=== PATIENT | female | born 1965 | race Caucasian/White ===

== ENCOUNTER 2019-07-11 08:26 | Outpatient (RCR) | payer BC, OTHER, SELFPAY | END 2019-07-11 23:59 | disposition home or self-care (01) | LOC: ANHAUDIO 08:26 | PROVIDERS: PCP Family Medicine; Visit Provider Family Medicine | DX: Z46.1 Encounter for fitting and adjustment of hearing aid (principal) | CPT/HCPCS: V5261 ==

== ENCOUNTER 2019-10-06 14:53 | Outpatient (CLI) | payer BC, OTHER, SELFPAY ==
--- NOTE | ~2019-10-06 | DEXA_ITS ---
Bone Density Report Name: LORELEI RESTREPO Age: 53 Sex: Female Ethnicity: White Date of : 1965 Indication: postmenopausal; prior fracture; cancer; Referring Provider: JERED BETHEA D.O. Study: Bone densitometry was performed. Exam Date: October 06, 2019 Accession number: [id number] Bone Density: Region BMD T-score Z-score Classification AP Spine (L1-L4) 1.002 -0.4 0.5 Normal Femoral Neck (Left) 0.823 -0.2 0.6 Normal Total Hip (Left) 1.084 1.2 1.7 Normal Total Hip Bilateral Avg 1.081 1.2 1.7 Normal Femoral Neck (Right) 0.849 0.0 0.9 Normal Total Hip (Right) 1.076 1.1 1.6 Normal World Health Organization criteria for BMD impression classify patients as: Normal (T-score at or above -1.0), Osteopenia (T-score between -1.0 and -2.5), or Osteoporosis (T-score at or below -2.5). 10-year Fracture Risk: FRAX not reported because: All T-scores for Spine Total, Hip Total, Femoral Neck at or above -1.0 Clinical Information Provided by Patient: Has had a low trauma fracture Has the following medical conditions: Cancer Patient maximum height was 68 Menopause Age: 53 Drinks caffeinated beverages Onset of menses at age 16 Number of children 2 Impression: The patient has normal bone mass. The patient has risk factors, including: previous fracture. Discussion: BONE DENSITY IS ABOVE THE MINIMUM DESIRABLE LEVEL AT ALL SKELETAL SITES TESTED. This patient?s bone mineral density is above the minimum desirable level (T-score -1.0 or better) at all sites measured. The patient should follow a healthful lifestyle (good nutrition with adequate calcium and vitamin D, and appropriate weight-bearing exercise). Follow-Up: Consider repeating this study in 5 years or sooner if there is some new clinical indication. Reported by: [facility] on 10/06/2019 3:34:00 PM. Reviewed, dictated and finalized at location ARandy ZENG
== END 2019-10-06 14:54 | disposition home or self-care (01) ==
PROVIDERS: PCP Family Medicine; Visit Provider Internal Medicine Medical Oncology
DX: C50.812 Malignant neoplasm of overlapping sites of left female breast (principal); Z17.0 Estrogen receptor positive status [ER+]; Z79.811 Long term (current) use of aromatase inhibitors
CPT/HCPCS: 77080

== ENCOUNTER 2019-11-10 07:00 | Outpatient (RCR) | payer BC, OTHER, SELFPAY ==
--- NOTE | 2019-10-19 10:33 | PTOPEVAL ---
PHYSICAL THERAPY EVALUATION AND PLAN OF CARE 10-19-2019 The PT evaluation was completed today and the plan of treatment is 2x/week for 4 weeks. Thank you for referring Nickie to [facility]. Please review, sign, date and return this plan of care ANSLEY. I agree with and certify that the following plan of care is medically necessary. Referring Physician Date Attending Provider: Moustapha Abraham DO *PT Outpatient Evaluation Start: 10/19/19 09:25 Document 10/19/19 09:20 KERON (Rec: 10/19/19 10:33 KERON [id number]) Outpatient Past Medical History Neurological History Hx Neurological Disorders No Significant History Cardiovascular History Hx Hypercholesterolemia Yes: DIET CONTROLLED Hx Hypertension Yes Respiratory History Hx Sleep Apnea Yes: NOT WEARING CPAP, LOSING WEIGHT HAS HELPED Gastrointestinal History Hx Gastrointestinal Disorders No Significant History Genitourinary History Hx Genitourinary Disorders No Significant History Musculoskeletal History Hx Musculoskeletal Disorders No Significant History Hematological History Hx Anemia Yes: HX ANEMIA Hx Blood Transfusions Yes: 2 UNITS DURING CHEMO Endocrine History Hx Endocrine Disorders No Significant History HEENT History Hx Other HEENT Disorders Yes: EYE MUSCLE SURG CHILD; B hearing aides Integumentary History Hx Skin Disorders No Significant History Reproductive History Hx Section Yes: X2 Hx Mastectomy Yes: BILAT MASTECTOMY Psychosocial History Hx Depression Yes: WITH TAMOXIFEN Hx Other Psychiatric Disorders Yes: INSOMNIA Pain History History of Any Previous or Ongoing No Significant History Instance of Pain Anesthesia History Hx Post-Op Nausea/Vomiting Yes Other History Hx Cancer Yes: LT BREAST CA Hx Chemotherapy Yes Hx Radiation Therapy Yes Evaluation Information Problem Diagnosis L UE lymphedema Onset Sep 22, 2019 Prior Level of Function Activity Level (Last 3 Months) Occupation general office associate- computer, phone, 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
--- NOTE | 2019-11-03 07:30 | PCPTNOTE ---
pt called and canceled due to illness;
--- NOTE | 2019-12-16 15:53 | PCPTNOTE ---
PHYSICAL THERAPY DISCHARGE 12-16-2019 Attending Provider: Moustapha Abraham DO Patient:Nica Beaver Date of :1965 Nickie has not returned for any further treatments since 11/10/2019, therefore she will be discharged at this time. She received 5 PT sessions, from October 05 to November 09. At the last session, she was doing well--had been educated on self lymph massage, lymphedema care, home exercises for shoulder and was issued information to order an ABC compression bra and swell pad. The goals were not assessed. Thank you for referring this patient to [facility]. Please review, sign, date and return this discharge summary ANSLEY. I have been updated about the patient's current status and I agree with discharge from the above service at this time. Referring Physician Date
== END 2019-12-19 11:21 | disposition home or self-care (01) ==
LOC: ANHPT 07:00
PROVIDERS: PCP Family Medicine; Visit Provider Internal Medicine Medical Oncology
DX: I89.0 Lymphedema, not elsewhere classified (principal); C50.812 Malignant neoplasm of overlapping sites of left female breast; Z17.0 Estrogen receptor positive status [ER+]
CPT/HCPCS: 97110; 97140; 97161

== ENCOUNTER 2022-02-07 10:55 | Outpatient (CLI) | payer BC, OTHER, SELFPAY ==
[2022-02-07 12:03] LABS: Hemoglobin 13.8 g/dL (12.0-15.0); Mean Corpuscular HGB Conc 32.9 g/dl (32-36); Mean Corpuscular Hemoglobin 29.3 pg (26-34); Mean Corpuscular Volume 89.2 fl (80-100); Mean Platelet Volume 11.2 fl (7.4-10.4); Platelet Count Result 248 k/mm3 (150-375); Red Blood Count 4.71 M/mm3 (4.2-5.4); Red Cell Distribution Width 13.3 % (11.5-14.5); White Blood Count 5.3 K/mm3 (4.5-10.0)
[2022-02-07 12:57] LABS: Free T4 Free Thyroxine 1.61 ng/mL (0.78-2.19)
[2022-02-07 13:10] LABS: Alanine Aminotransferase 32 U/L (6-35); Albumin Level 4.3 g/dL (3.5-5.1); Alkaline Phosphatase 96 U/L (38-126); Anion Gap 6 mmol/L (8-16); Aspartate Amino Transferase 25 U/L (14-36); Bilirubin,Total 0.7 mg/dL (0.2-1.3); Blood Urea Nitrogen 12 mg/dL (7-17); Calcium 9.3 mg/dL (8.4-10.2); Carbon Dioxide 27 mmol/L (22-30); Chloride 107 mmol/L (98-107); Cholesterol 221 mg/dL (0-200); Estimated Glomerular Filt Rate > 60; Glucose 99 mg/dL (65-110); HDL Direct 37 mg/dL; Potassium 4.3 mmol/L (3.4-5.0); Sodium 140 mmol/L (137-145); Triglycerides 199 mg/dL (<150)
[2022-02-07 13:16] LABS: LDL Cholesterol Direct 119 mg/dL
== END 2022-02-07 10:56 | disposition home or self-care (01) ==
LOC: ANHLAB 10:57
PROVIDERS: PCP Family Medicine; Visit Provider Physician Assistant
DX: D64.9 Anemia, unspecified (principal); E78.00 Pure hypercholesterolemia, unspecified; I10 Essential (primary) hypertension; R53.83 Other fatigue; Z13.220 Encounter for screening for lipoid disorders; Z13.1 Encounter for screening for diabetes mellitus
CPT/HCPCS: 36415; 80053; 80061; 84439; 84443; 85027

== ENCOUNTER 2022-06-23 14:53 | Outpatient (CLI) | payer BC, OTHER, SELFPAY ==
--- NOTE | ~2022-06-23 | DEXA_ITS ---
Bone Density Report Name: LORELEI RESTREPO Age: 56 Sex: Female Ethnicity: White Date of : 1965 Indication: postmenopausal; screening for osteoporosis; prior fracture; cancer; Referring Provider: LAKE, JERED Curran Study: Bone densitometry was performed. Exam Date: June 23, 2022 Accession number: [id number] Bone Density: Region BMD T-score Z-score Classification AP Spine(L1-L4) 0.900 -1.3 -0.3 Osteopenia Femoral Neck (Left) 0.801 -0.4 0.6 Normal Total Hip (Left) 0.963 0.2 0.8 Normal Femoral Neck (Right) 0.831 -0.2 0.9 Normal Total Hip (Right) 0.966 0.2 0.9 Normal Total Hip Mean 0.964 0.2 0.9 Normal World Health Organization criteria for BMD impression classify patients as: Normal (T-score at or above -1.0), Osteopenia (T-score between -1.0 and -2.5), or Osteoporosis (T-score at or below -2.5). 10-year Fracture Risk(1): Major Osteoporotic Fracture 8.7% Hip Fracture 0.3% Reported Risk Factors: [place] (), Neck BMD=0.801, BMI=35.5, previous fracture (1) FRAX(R) Version 3.08. Fracture probability calculated for an untreated patient. Fracture probability may be lower if the patient has received treatment. Previous Exams: Region Exam Age BMD T-score BMD Change BMD Change Date g/cm2 vs Baseline vs Previous AP Spine (L1-L4) 06/23/2022 56 0.900 -1.3 -0.102 (-10.2% -0.102 (-10.2% 10/06/2019 53 1.002 -0.4 Total Hip(Left) 06/23/2022 56 0.963 0.2 -0.121 (-11.2% -0.121 (-11.2% 10/06/2019 53 1.084 1.2 Total Hip(Right) 06/23/2022 56 0.966 0.2 -0.110 (-10.2% -0.110 (-10.2% 10/06/2019 53 1.076 1.1 *Denotes significance at 95% confidence level, LSC for AP Spine = 0.022 g/cm2, LSC for Total Hip = 0.027 g/cm2 # Denotes dissimilar scan types or analysis methods Clinical Information Provided by Patient: Has had a low trauma fracture Has the following medical conditions: Cancer Patient maximum height was 68 Menopause Age: 53 No regular weight bearing exercise Drinks caffeinated beverages Onset of menses at age 16 Number of children 2 Impression: The patient has low bone mass, based on the Total Spine T-score. The patient has an estimated ten-year risk of hip fracture of 0.3% and an estimated ten-year risk of major fracture of 8.7%, based on the WHO FRAX algorithm. The patient has risk factors, including: previous fracture. No significant bone loss was observed. Discussion: BONE
== END 2022-06-23 14:54 | disposition home or self-care (01) ==
LOC: ANHIMG 14:54
PROVIDERS: PCP Family Medicine; Visit Provider Internal Medicine Medical Oncology
DX: Z78.0 Asymptomatic menopausal state (principal); M85.88 Other specified disorders of bone density and structure, other site
CPT/HCPCS: 77080

== ENCOUNTER 2023-10-22 18:46 | Observation (INO) | payer BC, OTHER, SELFPAY ==
[2023-10-22] VITALS (11 sets, daily range): BP systolic 109–189; BP diastolic 66–149; PULSE 83–162; RESP 13–20; TEMP 36.3–36.4; O2SAT 95–100; BMI 37.0
--- NOTE | ~2023-10-22 | XR_ITS ---
EXAMINATION: XR chest 1V portable DATE: 10/22/2023 19:25 INDICATION: Chest pain. TECHNIQUE: A single frontal view of the chest was obtained. COMPARISON: Chest 2 views 12/01/2018 FINDINGS: There is no pneumonia, pleural effusion, or pneumothorax. The heart size is normal. IMPRESSION: 1. No acute cardiopulmonary disease. Reviewed, dictated and finalized at location E. E VICTIM SPECIALIST
--- NOTE | ~2023-10-22 | CT_ITS ---
EXAMINATION: CTA chest PE protocol DATE: 10/23/2023 14:50 INDICATION: Chest pain. TECHNIQUE: Computed tomography angiography (CTA) of the chest was performed with 100 mL Omnipaque-350 intravenous contrast timed to evaluate the pulmonary arteries. Coronal maximum intensity projection 3D-reconstructions were created by the technologist. Automated exposure control and iterative reconst ruction technique were employed. The dose-length product was 558.28 mGy-cm. COMPARISON: Chest single view 10/22/2023 FINDINGS: There is peripheral radiation fibrosis in anterolateral left lung. There is mild atelectasi s bilaterally. There is mosaic attenuation in the lungs, likely small airways disease. No pleural eff usion. The heart size is normal. No pericardial effusion. There is no pulmonary embolus. There is a 1 5 mm cyst in the liver. There is mild thoracic spondylosis. IMPRESSION: 1. No pulmonary embolus. 2. Mosaic attenuation in the lungs, likely small airways disease. Reviewed, dictated and finalized at location E. LOPE FOLDING MACHINE ADJUSTER
--- NOTE | 2023-10-22 18:47 | ECG_ITS ---
Measurements Intervals [place] Rate: 163 P: AL: 0 QRS: 56 QRSD: 109 T: 33 QT: 279 QTc: 460 Interpretive Statements SUPRAVENTRICULAR TACHYCARDIA NONSPECIFIC ST SEGMENT ABNORMALITY ABNORMAL ECG COMPARED TO ECG 12/01/2018 07:48:57 SVT REPLACES SINUS RHYTHM Electronically Signed On 10-23-2023 12:30:26 FIELD OPERATIONS MANAGER by Justin Hay M.D.
[2023-10-22 19:00] LABS: Basophils Absolute Auto 0.1 K/mm3 (0.0-0.1); Basophils Percent Auto 0.4 % (0.2-1.2); Eosinophils Absolute Auto 0.2 K/mm3 (0-0.3); Eosinophils Percent Auto 1.5 % (0-4.4); Hematocrit 44.1 % (37.0-47.0); Hemoglobin 14.8 g/dL (12.0-15.0); Immature Granulocyte Absolute 0.05 K/mm3 (0.00-0.031); Immature Granulocyte Percent A 0.4 % (0-0.5); Lymphocytes Absolute Auto 3.69 K/mm3 (0.9-3.2); Lymphocytes Percent Auto 26.7 % (18.3-44.2); Mean Corpuscular HGB Conc 33.6 g/dl (32-36); Mean Corpuscular Volume 86.3 fl (80-100); Mean Platelet Volume 10.7 fl (7.4-10.4); Monocytes Absolute Auto 0.8 K/mm3 (0.1-0.6); Platelet Count Result 348 k/mm3 (150-375); Red Blood Count 5.11 M/mm3 (4.2-5.4); Red Cell Distribution Width 13.1 % (11.5-14.5); White Blood Count 13.8 K/mm3 (4.5-10.0)
--- NOTE | 2023-10-22 19:01 | PC.NURSE ---
attempting Valsalva maneuver at this time
[2023-10-22] MEDS: SODIUM CHLORIDE 0.9% IV 1,000 ML 999 ML (19:02)
[2023-10-22] MEDS: ADENOSINE IV SOLN 6 MG/2 ML VIAL (19:04)
--- NOTE | 2023-10-22 19:09 | ED.GENADULT ---
HPI - General Adult General Chief complaint: Chest Pain Stated complaint: chest pain Time Seen by Provider: 10/22/23 19:08 History of Present Illness HPI narrative: 58 years old white female came to the emergency room by private car complaining of sudden onset of fast heartbeat started prior to arrival 20 minutes. Associated with chest pain. Patient denies having similar symptoms. History of bilateral mastectomy secondary to breast cancer 5 years ago, currently on hormone blockers., history of hypertension and depression. Related Data Allergies Allergy/AdvReac Type Severity Reaction Status Date / Time No Known Allergies Allergy Verified 07/07/23 09:00 Review of Systems Review of Systems: All systems reviewed & are unremarkable except as noted in HPI and below PMFSH Past Medical History Medical History (Updated 10/22/23 @ 20:46 by David Theodore MD) Breast cancer, left breast Hyperlipidemia Hypertension KENDALL (obstructive sleep apnea) Surgical History Surgical History History of left mastectomy d/t breast cancer History of right mastectomy 2019-prophylactic Family History Family History Father Hypertension Sibling Hypertension Grandparent Hypertension Other Family history of malignant neoplasm Social History Social History Smoking status: Never smoker Alcohol intake: never Substance use: never Substance use type: does not use Exam Narrative: General appearance: Well-developed, well-nourished Skin: Normal color Head: Normocephalic, nontraumatic Eyes: Clear conjunctiva ENT: Oropharynx normal, ears normal, nose normal Neck: Supple, nontender Chest and respiratory: Airway patent, no respiratory distress, no accessory muscle use Heart: Tachycardia Abdomen: Soft, nontender, no organomegaly, quiet bowel sounds Vascular: Normal peripheral pulses, normal capillary refill. Musculoskeletal: Normal range of motion, nontender back Neurologic: Alert and oriented ?3, REEL BLADE BENDER FURNACE TENDER is normal as tested, no gross motor deficit Course Vital Signs Vital signs: Vital Signs Temperature 36.3 C L 10/22/23 18:57 Pulse Rate 158 H 10/22/23 18:57 Respiratory Rate 20 10/22/23 18:57 Blood Pressure 141/109 H 10/22/23 18:57 Pulse Oximetry 98 10/22/23 18:57 Oxygen Delivery Room Air 10/22/23 18:57 Temperature 36.3 C L 10/22/23 18:57 Pulse Rate 101 H 10/22/23 20:01 Respiratory Rate 17 10/22/23 20:01 Blood Pressure 163/103 H 10/22/23 20:01 Pulse Oximetry 99 10/22/23 20:01 Oxygen Delivery Room Air 10/22/23 18:57 Medical Decision Making MDM Narrative Medical decision making narrative: PATIENT CAME TO THE ED WITH SUDDEN ONSET OF A CV T 20 MINUTES PRIOR TO ARRIVAL TO THE EMERGENCY ROOM. PATIENT COULD NOT TOLERATE MODIFIED VALSALVA MANEUVER, 6 MG OF ADENOSINE IV, CONVERTED TO NORMAL SINUS RHYTHM. BLOOD WORKUP TODAY SHOWED NO ACUTE ABNORMALITY, CHEST X-RAY SHOWED NO ACUTE ABNORMALITY, BECAUSE PATIENT HAD ASSOCIATED CHEST PAIN, ADMISSION FOR OBSERVATION TO RULE OUT THE POSSIBILITY OF CORONARY ARTERY DISEASE. DISCUSSED WITH HOSPITALIST. Vital Signs Vital Signs: Vital Signs Temperature 36.3 C L 10/22/23 18:57 Pulse Rate 158 H 10/22/23 18:57 Respiratory Rate 20 10/22/23 18:57 Blood Pressure 141/109 H 10/22/23 18:57 Pulse Oximetry 98 10/22/23 18:57 Oxygen Delivery Room Air 10/22/23 18:57 Temperature 36.3 C L 10/22/23 18:57 Pulse Rate 101 H 10/22/23 20:01 Respiratory Rate 17 10/22/23 20:01 Blood Pressure 163/103 H
[2023-10-22 19:11] LABS: Alanine Aminotransferase 34 U/L (6-35); Albumin Level 4.7 g/dL (3.5-5.1); Alkaline Phosphatase 99 U/L (38-126); Anion Gap 11 mmol/L (8-16); Aspartate Amino Transferase 32 U/L (14-36); Bilirubin,Total 0.7 mg/dL (0.2-1.3); Blood Urea Nitrogen 18 mg/dL (7-17); Calcium 10.2 mg/dL (8.4-10.2); Carbon Dioxide 23 mmol/L (22-30); Chloride 102 mmol/L (98-107); Estimated CRCL calculation 83 ml/min; Estimated Glomerular Filt Rate > 60; Glucose 152 mg/dL (65-110); Lipase 106 U/L (23-300); Potassium 4.1 mmol/L (3.4-5.0); Sodium 136 mmol/L (137-145)
--- NOTE | 2023-10-22 19:13 | ECG_ITS ---
Measurements Intervals [place] Rate: 95 P: 32 AL: 155 QRS: 34 QRSD: 103 T: 55 QT: 371 QTc: 467 Interpretive Statements SINUS RHYTHM INCOMPLETE RIGHT BUNDLE BRANCH BLOCK [90+ ms QRS DURATION, TERMINAL R IN V1/V2, 40+ ms S IN I/aVL/V4/V5/V6] NONSPECIFIC ST SEGMENT ABNORMALITY ABNORMAL ECG COMPARED TO ECG 10/22/2023 18:51:54 SVT HAS BEEN TERMINATED AND REPLACED WITH SINUS RHYTHM Electronically Signed On 10-23-2023 12:31:03 TILE SETTER SUPERVISOR by Justin Hay M.D.
[2023-10-22 19:16] LABS: INR 0.9; Partial Thromboplastin Time 28.4 SECONDS (22.3-36.8); Prothrombin Time 12.5 Seconds (11.1-14.7)
[2023-10-22 19:22] LABS: Troponin I < 0.012 ng/mL (0.000-0.034)
--- NOTE | 2023-10-22 20:51 | PM.IMHP ---
H&P: HPI History of Present Illness Date/Time: 10/22/23 20:51 Chief Complaint: palpitations Narrative: this is a 58-year-old female with past medical history significant for breast cancer status post bilateral mastectomy and radiation. Patient presents to the emergency room due to episode of palpitations while she was at [employer] store shopping for bed linen when all of a sudden she experience palpitations with lightheadedness, near-syncope. EXAMINATION: XR chest 1V portable DATE: 10/22/2023 19:25 INDICATION: Chest pain. TECHNIQUE: A single frontal view of the chest was obtained. COMPARISON: Chest 2 views 12/01/2018 FINDINGS: There is no pneumonia, pleural effusion, or pneumothorax. The heart size is normal. IMPRESSION: 1. No acute cardiopulmonary disease. Review of Systems Review of Systems: Palpitations, lightheadedness, near-syncope Constitutional: Constitutional: Denies chills, Denies fever(s) and Denies night sweats Eyes: Eyes: Denies change in vision ENT: Denies dysphagia and Denies odynophagia Cardiovascular: Cardiovascular: Reports lightheadedness, Reports palpitations and Reports dyspnea Respiratory: Respiratory: Denies chest congestion and Denies cough Gastrointestinal: Gastrointestinal: Reports abdominal pain, Denies dyspepsia, Denies heartburn, Denies diarrhea, Denies nausea and Denies vomiting Genitourinary: Genitourinary: Denies dysuria Musculoskeletal: Musculoskeletal: Denies arthralgias Integumentary/Breasts: Skin/Breast: Denies rash Neurologic: Denies focal weakness and Denies Sensory deficit (Neuro) Psychiatric: Psychiatric: Reports no additional psychiatric complaints and Reports as per HPI Endocrine: Endocrine: Denies cold intolerance, Denies flushing, Denies heat intolerance, Denies polyphagia, Denies polydipsia and Denies palpitations Hematologic/Lymphatic: Hematologic/Lymphatic: Reports no additional hematologic/lymphatic complaints and Reports as per HPI Allergic/Immunologic: Allergic/Immunologic: Reports no additional allergic/immunologic complaints and Reports as per HPI PMFSH Past Medical History Medical History (Updated 10/23/23 @ 02:04 by Jefe Putnam MD) Breast cancer, left breast Hyperlipidemia Hypertension KENDALL (obstructive sleep apnea) Surgical History Surgical History History of left mastectomy d/t breast cancer History of right mastectomy 2019-prophylactic Family History Family History Father Hypertension Sibling Hypertension Grandparent Hypertension Other Family history of malignant neoplasm Social History Social History Smoking status: Never smoker Alcohol intake: never Substance use: never Substance use type: does not use Do You Feel Safe in your Home?: Yes Lack of Transportation: No Lack of Food: Never True Current Housing: I Have Housing Concerned About Future Housing: No Difficulty Paying Gas/Electric Bills: No Difficulty Paying for Meds: No Currently Unemployed: No Education: Decline to Answer Difficulty w/ Childcare or Family Care: No Spiritual care concerns: No Meds Home Medications and Allergies Home Medications Medication Instructions Recorded Confirmed Type triamterene 37.5 1 tablet PO DAILY PRN Edema #90 11/08/19 10/22/23 Rx mg-hydrochlorothiazide 25 mg tablet tabs anastrozole 1 mg tablet (Arimidex) 1 mg PO DAILY #30 tabs 08/29/20 10/22/23 Rx metoprolol succinate 50 mg 50 mg PO DAILY #90 tabs 10/18/23 10/22/23 Rx tablet,extended release 24 hr albuterol sulfate 90 mcg/actuation 1 inh inhalation Q4H PRN shortness 10/22/23 10/22/23 Rx aerosol inhaler of breath or wheezing #8.5 grams fluticasone propionate 115 2 puff inhalation DAILY #12 grams 10/22/23 10/22/23 Rx mcg-salmeterol 21 mcg/actuation HFA inha
[2023-10-22] MEDS: METOPROLOL SUCCINATE EXT REL 12.5 MG, METOPROLOL SUCCINATE EXT REL 25 MG 37.5 MG PO (21:22)
--- NOTE | 2023-10-22 22:29 | ADMGEN ---
This patient, Nica Beaver, was admitted to IMU Room 203-01. Patient/family oriented to hospital policies and general routines including ID bracelet, bed and alarms, visiting hours, pain management, procedures, bathroom and other care routines, personal items, smoking policy, room service/diet, and visiting hours. Information on how to activate the Rapid Response Team has been discussed. Patient/Family are encouraged to report perceived risks to care and to ask questions if they do not understand what they are told or what they should do.
[2023-10-23] VITALS (11 sets, daily range): BP systolic 121–153; BP diastolic 66–86; PULSE 64–120; RESP 14–20; TEMP 36.4–36.7; O2SAT 97–99
--- NOTE | 2023-10-23 | ECHO_ITS ---
Patient Info Name: Nica Beaver Age: 58 years : 1965 Gender: Female Ht: 67 in Wt: 220 lbs BSA: 2.21 m2 HR: 74 bpm BP: 141 / 77 mmHg Heart Rhythm: Sinus Rhythm Technical Quality: Good Exam Date: 10/23/2023 11:05 AM Exam Location: Echo Lab Patient Status: Outpatient Admit Date: 10/22/2023 Staff Ordering Physician: Jefe Putnam MD Site Project Manager: Levar Scanlon RDCS Attending Provider: Jefe Putnam MD Referring Physician: Indy SALAZAR; Exam Type: CA echo doppler color flow Study Info Indications - palpatation Complete two-dimensional, color flow and Doppler transthoracic echocardiogram is performed. Summary 1. Complete two-dimensional, color flow and Doppler transthoracic echocardiogram is performed. 2. Normal 2D and doppler echocardiogram. Left Ventricle Left ventricular chamber dimension is normal. Left ventricular systolic function is normal, estimated at 60-65%. The left ventricular diastolic function is normal. Right Ventricle Right ventricular chamber dimension is normal. Left Atria Left atrial chamber dimension is normal. Right Atria Right atrial chamber dimension is normal. Aortic Valve The aortic valve is normal. Pulmonic Valve The pulmonic valve is normal. Mitral Valve The mitral valve has normal leaflets. Tricuspid Valve The tricuspid valve leaflets are normal. Pericardium/Pleural The pericardium appears normal. Aorta The aortic root size at the sinus of Valsalva is normal. Left Ventricular Outflow Tract Name Value Normal LVOT 2D LVOT Diameter 2.5 cm LVOT Doppler LVOT Peak Gradient 3 mmHg LVOT Mean Gradient 2 mmHg LVOT VTI 24 cm LVOT VTI/AV VTI Ratio 0.9 LVOT Stroke Volume 117 ml LVOT CO 6.9 l/min LVOT CI 3.1 l/min/m2 Pulmonic Valve Name Value Normal RVOT Doppler RVOT Peak Gradient 2 mmHg PV Doppler PV Peak Gradient 5 mmHg Mitral Valve Name Value Normal MV Doppler MV Decel [place] 344 cm/s2 MV PHT 87 ms MV Area (PHT) 2.5 cm2 4.0-5.0 MV Diastolic Function MV E Peak Velocity 103 cm/s MV A Peak Velocity 72 cm/s MV E/A 1.4 MV Decel Time
[2023-10-23 00:26] LABS: Troponin I < 0.012 ng/mL (0.000-0.034)
[2023-10-23 03:40] LABS: Troponin I < 0.012 ng/mL (0.000-0.034)
[2023-10-23] MEDS: FLUTICASONE/SALMETEROL 115-21 MCG INHALER 1 PUFF 2 PUFF INHALATION (08:26)
[2023-10-23] MEDS: METOPROLOL SUCCINATE EXT REL 50 MG TABCR PO (08:59)
[2023-10-23] MEDS: ASPIRIN 81 MG CHEWABLE TABLET PO (08:59)
[2023-10-23] MEDS: ANASTROZOLE (*CHEMO) 1 MG TABLET PO (08:59)
[2023-10-23] MEDS: VENLAFAXINE HCL XR 37.5 MG CAP PO (08:59)
--- NOTE | 2023-10-23 09:07 | PM.IMPN ---
Progress Note: A&P Assessment and Plan (1) SVT (supraventricular tachycardia): Code(s): I47.10 - Supraventricular tachycardia, unspecified Status: Acute (2) Chest pain: Code(s): R07.9 - Chest pain, unspecified Status: Acute (3) Hypertension: Qualifiers: Hypertension type: essential hypertension Qualified Code(s): I10 - Essential (primary) hypertension Code(s): I10 - Essential (primary) hypertension Status: Acute (4) History of breast cancer: Code(s): Z85.3 - Personal history of malignant neoplasm of breast Status: Acute (5) KENDALL (obstructive sleep apnea): Code(s): G47.33 - Obstructive sleep apnea (adult) (pediatric) Status: Acute Plan 58-year-old white female came with complaining of sudden onset of fast heartbeat started 20 minutes prior to arrival. Associated chest pain. No prior symptoms. History of bilateral mastectomy secondary to breast cancer 5 years ago currently on anastrozole. History of hypertension hyperlipidemia and obstructive sleep apnea. On arrival to the ED her heart rate was in 160s. Could not tolerate modified Valsalva maneuver. 6 mg adenosine IV was given which converted her to normal sinus rhythm. Chest x-ray with no acute abnormality mild leukocytosis on laboratory evaluation. Troponin was done with serial levels which remained negative. Will consult Cardiology for further evaluation. Thyroid function checked which has been normal. On metoprolol received aspirin in the ER. Continued on 81 mg aspirin. History of COVID in July reported ongoing shortness of breath since then with associated chest pain Further evaluated with CTA Echo pending DVT prophylaxis SCDs Subjective Date/time seen: 10/23/23 09:07 Interval history: 58-year-old white female came with complaining of sudden onset of fast heartbeat started 20 minutes prior to arrival. Associated chest pain. No prior symptoms. History of bilateral mastectomy secondary to breast cancer 5 years ago currently on anastrozole. History of hypertension hyperlipidemia and obstructive sleep apnea. On arrival to the ED her heart rate was in 160s. Could not tolerate modified Valsalva maneuver. 6 mg adenosine IV was given which converted her to normal sinus rhythm. Chest x-ray with no acute abnormality mild leukocytosis on laboratory evaluation. Troponin was done with serial levels which remained negative. Will consult Cardiology for further evaluation. Thyroid function checked which has been normal. On metoprolol received aspirin in the ER. Continued on 81 mg aspirin. History of COVID in July reported ongoing shortness of breath since then Review of Systems Review of Systems: All systems reviewed & are unremarkable except as noted in HPI and below Exam Narrative: General appearance: Well-developed, well-nourished Skin: Normal color Head: Normocephalic, nontraumatic Eyes: Clear conjunctiva ENT: Oropharynx normal, ears normal, nose normal Neck: Supple, nontender Chest and respiratory: Airway patent, no respiratory distress, no accessory muscle use Heart:? Regular rate and rhythm Abdomen: Soft, nontender, no organomegaly, quiet bowel sounds Vascular: Normal peripheral pulses, normal capillary refill. Musculoskeletal: Normal range of motion, nontender back Neurologic: Alert and oriented ?3, INTELLIGENCE OFFICER BASIC is normal as tested, no gross motor deficit ?? Objective Data Vital Signs Vital Signs: Vital Signs - 24 hr 10/22/23 18:57 10/22/23 19:01 10/22/23 19:20 Temperature 97.4 F L Pulse Rate 158 H 162 H 99 Respiratory Rate 20 13 19 Blood Pressure 141/109 H 162/149 H 189/94 H Pulse Oximetry 98 100 98 Oxygen Delivery Room Air Fraction of Inspired Oxygen 10/22/23 20:01 10/22/23 21:01 10/22/23 21:22 Temperature Pulse Rate 101 H 105 H 121 H Respiratory Rate 17 17 Blood Pressure 163/103 H 148/98 H Pulse Oximetry 99 98 Oxygen Delivery Fraction of Ins
[2023-10-23] MEDS: ACETAMINOPHEN 325 MG TABLET 650 MG PO (11:32)
--- NOTE | 2023-10-23 14:41 | PM.CNCAR ---
Assessment and Plan Assessment and plan (1) SVT (supraventricular tachycardia): Code(s): I47.10 - Supraventricular tachycardia, unspecified Status: Acute Plan This is a very pleasant 58-year-old lady without cardiac history who came in with an episode of symptomatic AV node reentrant tachycardia. She responded well to intravenous a dentist and has been asymptomatic and in sinus rhythm since then. At this time I would recommend transitioning her metoprolol to diltiazem which will more effectively affect her AV node physiology and hopefully treat her hypertension as well as suppress her arrhythmia. I long discussion with the patient about options of medical therapy of this sort of an arrhythmia and also the option for definitive catheter ablated therapy. Since catheter ablation is highly successful over the specific arrhythmia she is interested in a consultation with an senior electrical estimator. From my perspective she can be discharged home. I have placed orders in for her to be transition to long-acting diltiazem 180 mg per day. I will see her in the office and also arrange for follow-up with my partner in electrophysiology. Justin Hay MD [facility] History of Present Illness History of Present Illness Consult date/time: 10/23/23 14:41 Reason For Visit: SVT,Chest Pain Narrative: This is a very pleasant 58-year-old lady I am seeing at the request of the hospitalist today after she was admitted last evening following an episode of supraventricular tachycardia. She is not known to have any cardiac problems prior to this and was shopping at a local [employer] store with her daughters and suddenly noticed the onset of feeling unwell with rapid tachycardia and she thought that her chest was going to explode. Her daughter said that she looked pale and she with a broader by car to the emergency room. Upon arrival she was found to be in a supraventricular tachycardia. Upon my review of the EKG it looks like typical AV node reentry and she was told to attempt a vagal maneuver in the ER. That was not successful so she received an intravenous injection of adenosine with 6 mg IV push which converted her back to sinus rhythm. After conversion she said that she felt well and has been asymptomatic since then. For some reason it was determined that she needed to be admitted to the hospital to rule out coronary artery disease. Her troponin levels were sampled x3 sets in they were normal. She does not have any prior history of coronary disease or any exertional symptoms that are suggestive of that. She denies any fatigue or shortness of breath exertional chest pain. She says she has never had an episode of palpitations like this in the past and offers no other pertinent history. She does have a history of hypertension which is being treated with combination of metoprolol with triamterene/hydrochlorothiazide. She has a history of breast cancer which has been managed at [facility] in [place] with a and in [facility]. She states that she underwent bilateral mastectomy followed by radiation and chemotherapy. He has completed with that in her oncologist's sees her regularly for follow-up. She is a lady her 14 years ago a massive pulmonary embolism. Again she has 2 grown daughters. There is no family history of premature ischemic heart disease. An echocardiogram has been ordered by the hospitalist but the study has yet to be interpreted. The nurses are telling me that they were going to take her down to radiology for a CT scan of the chest that was ordered by the hospitalist. Review of Systems Constitutional: Constitutional: Reports no additional constitutional complaints Eyes: Eyes: Reports no additional eye complaints ENT: Reports system reviewed and no additional complaints, except as documented Cardiovascular: Cardiovascular: Reports as per HPI and Reports palpitations Respiratory: Respiratory: Report
--- NOTE | 2023-10-23 15:20 | PM.DS ---
DS: Admitting Diagnosis Discharge Date 10/23/2023 Admitting Diagnosis Palpitation DS: Discharge Diagnosis Discharge Diagnosis (1) SVT (supraventricular tachycardia): Code(s): I47.10 - Supraventricular tachycardia, unspecified Status: Acute (2) Chest pain: Code(s): R07.9 - Chest pain, unspecified Status: Acute (3) Hypertension: Qualifiers: Hypertension type: essential hypertension Qualified Code(s): I10 - Essential (primary) hypertension Code(s): I10 - Essential (primary) hypertension Status: Acute (4) History of breast cancer: Code(s): Z85.3 - Personal history of malignant neoplasm of breast Status: Acute (5) KENDALL (obstructive sleep apnea): Code(s): G47.33 - Obstructive sleep apnea (adult) (pediatric) Status: Acute DS: Summary Hospital Course Hospital Course: 58-year-old white female came with complaining of sudden onset of fast heartbeat started 20 minutes prior to arrival.? Associated chest pain.? No prior symptoms.? History of bilateral mastectomy secondary to breast cancer 5 years ago currently on anastrozole.? History of hypertension hyperlipidemia and obstructive sleep apnea.? On arrival to the ED her heart rate was in 160s.? Could not tolerate modified Valsalva maneuver.? 6 mg adenosine IV was given which converted her to normal sinus rhythm.? Chest x-ray with no acute abnormality mild leukocytosis on laboratory evaluation.? Troponin was done with serial levels which remained negative.? Will consult Cardiology for further evaluation.? Thyroid function checked which has been normal.? On metoprolol received aspirin in the ER.? Continued on 81 mg aspirin. History of COVID in July reported ongoing shortness of breath since then with associated chest pain Further evaluate with CT which came back negative for PE Echo was normal Cardiology evaluated and transitioned her metoprolol to diltiazem. Okay per Cardiology to discharge. She will continue follow-up as an outpatient basis with Cardiology and potentially referral to line helper. DVT prophylaxis SCDs Time Spent with Patient Time attestation: Total time spent providing and/or coordinating discharge services: 35 minutes Exam Narrative: General appearance: Well-developed, well-nourished Skin: Normal color Head: Normocephalic, nontraumatic Eyes: Clear conjunctiva ENT: Oropharynx normal, ears normal, nose normal Neck: Supple, nontender Chest and respiratory: Airway patent, no respiratory distress, no accessory muscle use Heart:? Regular rate and rhythm Abdomen: Soft, nontender, no organomegaly, quiet bowel sounds Vascular: Normal peripheral pulses, normal capillary refill. Musculoskeletal: Normal range of motion, nontender back Neurologic: Alert and oriented ?3, FOUNDRY ENGINEER is normal as tested, no gross motor deficit ?? DS: Data Data Completed and Pending Completed studies during hospitalization: Exam Type: ? ? CA echo doppler color flow Study Info Indications ?? ? - palpatation Complete two-dimensional, color flow and Doppler transthoracic echocardiogram is performed. Account #: ? ? [id number] Summary ? 1. Complete two-dimensional, color flow and Doppler transthoracic echocardiogram is performed. ? 2. Normal 2D and doppler echocardiogram. Left Ventricle ? Left ventricular chamber dimension is normal. ? Left ventricular systolic function is normal, estimated at 60-65%. ? The left ventricular diastolic function is normal. Right Ventricle ? Right ventricular chamber dimension is normal. Left Atria ? Left atrial chamber dimension is normal. Right Atria ? Right atrial chamber dimension is normal. Aortic Valve ? The aortic valve is normal. Pulmonic Valve ? The pulmonic valve is normal. Mitral Valve ? The mitral valve has normal leaflets. Tricuspid Valve ? The tricuspid valve leaflets are normal. Pericardium/Pleural ? The pericardium appears normal.
== END 2023-10-23 15:44 | disposition home or self-care (01) ==
LOC: ANHED 20:46 → ANHIMU 22:32
PROVIDERS: Admitting Provider Internal Medicine; Emergency Provider Emergency Medicine; PCP Family Medicine; Visit Provider Internal Medicine
DX: I47.10 Supraventricular tachycardia, unspecified (principal); R07.9 Chest pain, unspecified; I10 Essential (primary) hypertension; F32.A Depression, unspecified; E78.5 Hyperlipidemia, unspecified; R94.31 Abnormal electrocardiogram [ECG] [EKG]; G47.33 Obstructive sleep apnea (adult) (pediatric); Z90.13 Acquired absence of bilateral breasts and nipples; Z92.21 Personal history of antineoplastic chemotherapy; Z92.3 Personal history of irradiation; Z85.3 Personal history of malignant neoplasm of breast; Z86.16 Personal history of COVID-19; Z79.818 Long term (current) use of other agents affecting estrogen receptors and estrogen levels; Z79.811 Long term (current) use of aromatase inhibitors; Z79.51 Long term (current) use of inhaled steroids; Z79.899 Other long term (current) drug therapy
CPT/HCPCS: 36415; 71045; 71275; 80053; 83690; 84443; 84484; 85025; 85610; 85730; 93005; 93306; 94002; 94640; 96361; 96374; 99285; A9270; G0378; J0153; J7030; Q9967

== ENCOUNTER 2023-12-22 08:54 | Outpatient (CLI) | payer BC, OTHER, SELFPAY ==
[2023-12-22 09:51] LABS: Basophils Percent Auto 0.6 % (0.2-1.2); Eosinophils Absolute Auto 0.2 K/mm3 (0-0.3); Hematocrit 38.9 % (37.0-47.0); Hemoglobin 12.1 g/dL (12.0-15.0); Immature Granulocyte Absolute 0.02 K/mm3 (0.00-0.031); Immature Granulocyte Percent A 0.4 % (0-0.5); Lymphocytes Absolute Auto 1.67 K/mm3 (0.9-3.2); Lymphocytes Percent Auto 31.2 % (18.3-44.2); Mean Corpuscular HGB Conc 31.1 g/dl (32-36); Mean Corpuscular Hemoglobin 28.3 pg (26-34); Mean Corpuscular Volume 90.9 fl (80-100); Mean Platelet Volume 11.3 fl (7.4-10.4); Monocytes Absolute Auto 0.4 K/mm3 (0.1-0.6); Monocytes Percent Auto 7.1 % (2.6-8.5); Neutrophils Absolute Auto 3.1 K/mm3 (1.3-6.7); Neutrophils Percent Auto 57.7 % (45.5-73.1); Platelet Count Result 235 k/mm3 (150-375); Red Blood Count 4.28 M/mm3 (4.2-5.4); Red Cell Distribution Width 13.3 % (11.5-14.5); White Blood Count 5.4 K/mm3 (4.5-10.0)
[2023-12-22 10:00] LABS: Alanine Aminotransferase 29 U/L (6-35); Albumin Level 4.3 g/dL (3.5-5.1); Alkaline Phosphatase 75 U/L (38-126); Anion Gap 3 mmol/L (4-12); Aspartate Amino Transferase 23 U/L (14-36); Bilirubin,Total 0.6 mg/dL (0.2-1.3); Blood Urea Nitrogen 14 mg/dL (7-17); Calcium 9.3 mg/dL (8.4-10.2); Carbon Dioxide 29 mmol/L (22-30); Chloride 107 mmol/L (98-107); Cholesterol 171 mg/dL (0-200); Estimated Glomerular Filt Rate > 60; Glucose 99 mg/dL (65-110); HDL Direct 34 mg/dL; Sodium 139 mmol/L (137-145); Triglycerides 149 mg/dL (<150)
[2023-12-22 10:11] LABS: LDL Cholesterol Direct 112 mg/dL
== END 2023-12-22 08:55 | disposition home or self-care (01) ==
LOC: ANHLAB 08:56
PROVIDERS: PCP Family Medicine; Visit Provider Family Medicine
DX: R53.83 Other fatigue (principal); Z85.3 Personal history of malignant neoplasm of breast; E78.2 Mixed hyperlipidemia; E78.00 Pure hypercholesterolemia, unspecified; I10 Essential (primary) hypertension
CPT/HCPCS: 36415; 80053; 80061; 85025

== ENCOUNTER 2025-02-13 08:01 | Outpatient (CLI) | payer BC, OTHER, SELFPAY ==
--- NOTE | ~2025-02-13 | DEXA_ITS ---
Bone Density Report Name: LORELEI RESTREPO Age: 59 Sex: Female Ethnicity: White Date of : 1965 Indication: osteopenia; cancer; Referring Provider: LAKE, JERED Curran Study: Bone densitometry was performed. Exam Date: February 13, 2025 Accession number: [id number] Bone Density: Region BMD T-score Z-score Classification AP Spine(L1-L4) 0.861 -1.7 -0.5 Osteopenia Femoral Neck (Left) 0.801 -0.4 0.7 Normal Total Hip (Left) 1.005 0.5 1.3 Normal Femoral Neck (Right) 0.821 -0.3 0.9 Normal Total Hip (Right) 0.989 0.4 1.2 Normal Total Hip Mean 0.997 0.5 1.3 Normal World Health Organization criteria for BMD impression classify patients as: Normal (T-score at or above -1.0), Osteopenia (T-score between -1.0 and -2.5), or Osteoporosis (T-score at or below -2.5). 10-year Fracture Risk(1): Major Osteoporotic Fracture 5.4% Hip Fracture 0.2% Reported Risk Factors: [place] (), Neck BMD=0.801, BMI=36.9 (1) FRAX(R) Version 3.08. Fracture probability calculated for an untreated patient. Fracture probability may be lower if the patient has received treatment. Previous Exams: Region Exam Age BMD T-score BMD Change BMD Change Date g/cm2 vs Baseline vs Previous AP Spine (L1-L4) 02/13/2025 59 0.861 -1.7 -0.141 (-14.1% -0.039 (-4.4%) 06/23/2022 56 0.900 -1.3 -0.102 (-10.2% -0.102 (-10.2% 10/06/2019 53 1.002 -0.4 Total Hip(Left) 02/13/2025 59 1.005 0.5 -0.079 (-7.3%) 0.042 (4.4%)* 06/23/2022 56 0.963 0.2 -0.121 (-11.2% -0.121 (-11.2% 10/06/2019 53 1.084 1.2 Total Hip(Right) 02/13/2025 59 0.989 0.4 -0.087 (-8.0%) 0.023 (2.4%) 06/23/2022 56 0.966 0.2 -0.110 (-10.2% -0.110 (-10.2% 10/06/2019 53 1.076 1.1 *Denotes significance at 95% confidence level, LSC for AP Spine = 0.022 g/cm2, LSC for Total Hip = 0.027 g/cm2 # Denotes dissimilar scan types or analysis methods Clinical Information Provided by Patient: Has used the following medications: HRT (i.e. estrogen/hormone therapy), Vitamin D Has the following medical conditions: Cancer Patient maximum height was 68 Menopause Age: 53 Drinks caffeinated beverages Onset of menses at age 16 Number of children 2 Impression: The patient has low bone mass, based on the Total Spine T-score. The patient has an estimated ten-year risk of hip fracture of 0.2% and an estimated ten-year risk of major fracture of 5.4%, based on the WHO FRAX algorithm. The BMD for the AP Spine (L1-L4) decreased, changing by -4.4% since the last DXA exam. Discussion: BONE DENSITY IS LOW AT ONE OR MORE SKELETAL SITES. This patient's lowest T-score is low at one or more skeletal sites. It meets the World Health Organization's (WHO) criteria for ?low bone mass? (T-score between -1.0 and -2.5). The patient's 10-year risk of fracture as calculated by FRAX is less than the threshold where pharmacological therapy is recommended by the National Osteoporosis Foundation (NOF). However, all treatment decisions require clinical judgment and consideration of individual patient factors, including patient preferences, comorbidities, previous drug use, risk factors not captured in the FRAX model (e.g., frailty, falls, vitamin D deficiency, increased bone turnover, interval significant decline in bone density) and possible under or overestimation of fracture risk by FRAX. The patient should follow a healthful lifestyle (good nutrition with adequate calcium and vitamin D, and appropriate weight-bearing exercise). Follow-Up: Consider repeating this study in 2 years to reassess this patient's status, or sooner if there is some new clinical indication. Reported by: LAKESHA on 02/13/2025 8:38:00 AM. Reviewed, dictated and finalized at location A.
--- OUTSIDE RECORDS SUMMARY | 2025-02-13 08:04 | XMS_ITS | Clinical Summary ---
Author Organization [facility] Address [facility] [place] [address] Care Team Providers Care Slide Fastener Repairer Name Role Phone Graciela Yoon MD Unavailable [phone] Moustapha Abraham DO Unavailable [phone] Arminda Alford MD Primary Care Provider [phone] Allergies Active Allergy Reactions Criticality Noted Date Comments Docetaxel Other (See comments),Flushing (skin) Low 12/24/2018 Facial flushing and high blood pressure Medications multivitamin tabletIndicatio ns:Vitamin Deficiency Prevention Take 1 tablet by mouth every morning Active TRIAMTERENE-HYD ROCHLOROTHIAZID E 37.5-25 mg per tablet TAKE 1 TABLET BY MOUTH ONCE DAILY NEEDED 30 tablet 1 05/11/20 19 Active Additional Information Patient taking differently: 1 tablet/capsule oral As needed, Indications: blood pressure/swelling, Reported on 09/15/2024 acetaminophen-a spirin-caffeine (EXCEDRIN MIGRAINE) 250-250-65 mg per tablet Take 2 tablets by mouth every 6 (six) hours as needed for headaches Active cholecalciferol (VITAMIN D-3) 2000 unit tablet Take 1 tablet (2,000 Units total) by mouth daily 90 tablet 3 06/27/20 22 Active dilTIAZem XR (DILT-XR) 180 mg 24 hr capsule Take 1 capsule by mouth once daily 30 capsule 01/11/20 25 Active exemestane (AROMASIN) 25 mg tabletIndicatio ns:Malignant neoplasm of overlapping sites of left breast in female, estrogen receptor positive (HCC) TAKE 1 TABLET BY MOUTH ONCE DAILY AFTER A MEAL 90 tablet 02/01/20 25 Active exemestane (AROMASIN) 25 mg tabletIndicatio ns:Malignant neoplasm of overlapping sites of left breast in female, estrogen receptor positive (HCC) TAKE 1 TABLET BY MOUTH ONCE DAILY AFTER A MEAL 90 tablet 09/26/19 25 025 Discontinued Active Problems Problem Noted Date Diagnosed Date Paroxysmal supraventricular tachycardia 12/22/19 24 Status post bilateral mastectomy 07/15/2019 Anemia 12/16/2018 Malignant neoplasm of overla pping sites of left breast in female, estrogen receptor positive 07/12/2018 Cancer Staging:Pathologic stage from 09/20/2018:Stage IIA(pT2, pN2a, cM0, G3, ER: Positive, PA: Positive, HER2: Positive) - Signed by Debby Tony MD on 09/20/2018 Breast mass 06/29/2018 Surgical History Surgery Date Site/Laterality Comments SECTION 1990 and 1994 BREAST BIOPSY 07/06/2018 Left EYE SURGERY 08/31/1971 - 08/30/1972 corrective eye surgery as a child MASTECTOMY 08/16/2018 Left Left Skin Sparing Mastectomy WISDOM TOOTH EXTRACTION Medical History Medical History Date Comments Overweight Breast cancer (HCC) invasive laila ellyn cancer was Grade 3, estrogen receptor positive, progesterone receptor positive, and Ttj0jtm was 3+. Hypertension Sleep apnea Motion sickness PONV (postoperative nausea and vomiting) patient states she has experienced this the last two surgeries Breast cancer (HCC) last chemoth erapy 02/2019, last radiation 2018-Herceptin infusion 08/2019 Family History Medical History Relation Name Comments Hypertension Brother Heart attack Father Ovarian cancer Mother Hypertension Sister Relation Name Status Comments Brother Alive Father 62 Mother (Age 32) Sister Alive Social History Tobacco Use Types Packs/Day Years Used Date Smoking Tobacco: Never Smokeless Tobacco: Never Alcohol Use Standard Drinks/Week Comments Yes 0 (1 standard drink = 0.6 oz pur e alcohol) 1 drink/month AUDIT-C Answer Date Recorded Frequency of Alcohol Consumption Not on file 06/29/2023 Q2: How many drinks containi ng alcohol do you have on a typical day when you are drinking? Patient does not drink Frequency of Binge Drinking Not on file 06/02 Comments No Sex and Gender Information Value Date Recorded Sex Assigned at Not on file Legal Sex Female 9:04 AM SQUASH CENTRE MANAGER Gender Identity Not on file Sexual Orientation Not on file Obstetrics History Last Filed Vital Signs Vital Sign Reading Time Taken Comments Blood Pressure 137/84 09/15/2024 8:09 AM SQUASH CENTRE MANAGER Pulse 87 09/15/2024 8:09 AM SQUASH CENTRE MANAGER Temperature 36.2 C (97.1 F) 09/15/2024 8:09 AM SQUASH CENTRE MANAGER Respiratory Rate 18 09/15/2024 8:09 AM SQUASH CENTRE MANAGER Oxygen Saturation 98% 09/15/2024 8:09 AM SQUASH CENTRE MANAGER Inhaled Oxygen Concentration - - Weight 107.3 kg (236 lb 9.6 oz) 09/15/2024 8:09 AM SQUASH CENTRE MANAGER Height 172.7 cm (5' 8) 09/15/2024 8:09 AM SQUASH CENTRE MANAGER Body Mass Index 35.97 09/15/2024 8:09 AM SQUASH CENTRE MANAGER Plan of Treatment Health Maintenance Due Date Last Done Comments Cervical Cancer Screening 1967 Colon Cancer Screening-Colonoscopy 1967 Depression Screening 1967 Hepatitis C Screening 1967 DTaP/Tdap/Td Vaccine (1 - Tdap) 1978 Hepatitis B Screening 1985 Regular Well Visit/Exam 18-64 1985 Pneumococcal vaccine <65 (1 of 2 - PCV) 1986 Zoster Vaccine (1 of 2) 1986 Breast Cancer Screening-Mammogram 03/22/2020 019, 06/29/2018 Influenza Vaccine (Season Ended) 2025 Medical Devices Implanted Type Area Meter And Regulator Shop Supervisor Device Identifier Shelf Expiration Date Model / Serial / Lot Angio Dynamics [id number] Bioflo Endexo 8fr 1 Lumen Catheter Fill Suture Hole Radiopaque - [id number] Implanted:Qty: 1 on 09/13/2018 by Graciela Yoon MD at [facility] Catheter Right: Chest Angio Dynamics 07/30/2021 [id number] / / [id number] Procedures Procedure Name Priority Date/Time Associated Diagnosis Comments SCREENING MAMMOGRAM RIGHT W MARCK UNILATERAL ONLY Schedule Routine, Read Routine (OP Routine) 03/22/2019 3:46 PM CDT History of breast cancer from Last 3 Months or Most Recently Relevant to Health Maintenance Results * Screening Mammogram Right W Marck Unilateral Only (03/22/2019 3:46 PM CDT) Anatomical Region Laterality Modality Breast Right Mammography Narrative 03/23/2019 9:35 AM CDT Mammogram Technique: Right Breast Digital Breast Tomosynthesis, Unilateral C-view 2D Screening mammogram. Views obtained: right craniocaudal and right mediolateral oblique. Computer Aided Detection was performed. Mammogram Findings: The present examination has been compared to a prior imaging study performed at [facility] on 06/29/2018. There are scattered areas of fibroglandular density. There is no suspicious abnormality in the right breast. Patient status post contralateral mastectomy for personal history of breast cancer. Impression: Annual screening mammography is recommended. OVERALL FINAL ASSESSMENT: BI-RADS CATEGORY 1: Negative. Procedure Note Neeraj Diaz MD - 03/23/2019 Mammogram Technique: Right Breast Digital Breast Tomosynthesis, Unilateral C-view 2DScreening mammogram. Views obtained: right craniocaudal and right mediolateral oblique. Computer Aided Detection was performed. Mammogram Findings: The present examination has been compared to a prior imaging study performed at [facility] on 06/29/2018. There are scattered areas of fibroglandular density. There is no suspicious abnormality in the right breast. Patient status post contralateral mastectomy for personal history ofbreast cancer. Impression: Annual screening mammography is recommended. OVERALL FINAL ASSESSMENT: BI-RADS CATEGORY 1: Negative. Graciela Yoon MD IMG MAMMO PROCEDURES Fi nal Result from Last 3 Months or Most Recently Relevant to Health Maintenance Insurance [facility] Subscriber Plan / Payer (Ef fective 2019-Present) Name:Lorelei Beaver Relation to Subscriber:Self Name:Lorelei Beaver Payer ID:[id number] (NAIC) Group ID:[id number] Type:[employer] Address: [address] Advance Directives For more information, please contact: [phone] * Full Code (Latest Code Status on File) Date Activated Date Inactivated Comments 07/04/2019 10:29 AM 07/04/2019 7:06 PM * Full Code Date Activated Date Inactivated Comments 08/16/2018 4:13 PM 08/17/2018 1:39 PM Care Teams Slide Fastener Repairer Relationship Specialty Start Date End Date Arminda Alford MD [address] [place] [address] [id number] PCP - General Family Medicine 03/19/20 Graciela Yoon MD [address] [facility] [address] [place] [address] Surgeon Surgical Oncology 04/28/19 Moustapha Abraham DO [address] [place] [address] [id number] Medical Oncologist/Telecommunications Manager Hematology and Oncology 06/28/19
--- OUTSIDE RECORDS SUMMARY | 2025-02-13 08:04 | XMS_ITS | Referral Summary ---
Author Organization [facility] Address [facility] [place] [address] Care Team Providers Care Deck Mechanic Name Role Phone Graciela Yoon MD Unavailable [phone] Moustapha Abraham DO Unavailable [phone] Arminda Alford MD Primary Care Provider [phone] Allergies Active Allergy Reactions Criticality Noted Date [...] 09/20/2018:Stage IIA(pT2, pN2a, cM0, G3, ER: Positive, [place]: Positive, HER2: Positive) - Signed by Debby Tony MD on 09/20/2018 Breast mass 06/29/2018 Social History Tobacco Use Types Packs/Day Years [...] on file Legal Sex Female 9:04 AM GOLF CADDY Gender Identity Not on file Sexual Orientation Not on file Last Filed Vital Signs Vital Sign Reading Time Taken Comments Blood Pressure 137/84 09/15/2024 8:09 AM GOLF CADDY Pulse 87 09/15/2024 8:09 AM GOLF CADDY Temperature 36.2 C (97.1 F) 09/15/2024 8:09 AM GOLF CADDY Respiratory Rate 18 09/15/2024 8:09 AM GOLF CADDY Oxygen Saturation 98% 09/15/2024 8:09 AM GOLF CADDY Inhaled Oxygen Concentration - - Weight 107.3 kg (236 lb 9.6 oz) 09/15/2024 8:09 AM GOLF CADDY Height 172.7 cm (5' 8) 09/15/2024 8:09 AM GOLF CADDY Body Mass Index 35.97 09/15/2024 8:09 AM GOLF CADDY Plan of Treatment Not on file Medical Devices Implanted Type Area Microbiology Lab Manager Device Identifier Shelf Expiration Date Model / Serial / Lot Angio Dynamics [id number] Bioflo Endexo 8fr 1 Lumen Catheter Fill Suture Hole Radiopaque - [id number] Implanted:Qty: 1 on 09/13/2018 by Graciela Yoon MD at [facility] Catheter Right: Chest Angio Dynamics 07/30/2021 [id number] / / [id number] Procedures Procedure Name Priority Date/Time Associated Diagnosis Comments SCREENING MAMMOGRAM RIGHT W SHANDA UNILATERAL ONLY Schedule Routine, Read Routine (OP Routine) 03/22/2019 3:46 PM CDT History of breast cancer from Last 3 Months or Most Recently Relevant to Health Maintenance Results * Screening Mammogram Right W Shanda Unilateral Only (03/22/2019 3:46 PM CDT) Anatomical Region Laterality Modality Breast Right Mammography Narrative 03/23/2019 9:35 AM CDT Mammogram Technique: Right Breast Digital Breast Tomosynthesis, Unilateral C-view 2D Screening mammogram. Views obtained: right craniocaudal and right mediolateral oblique. Computer Aided Detection was performed. Mammogram Findings: The present examination has been compared to a prior imaging study performed at [facility] on 06/29/2018. There are scattered areas of [...] to a prior imaging study performed at [facility] on 06/29/2018. There are scattered areas of fibroglandular density. There is no suspicious abnormality in the right breast. Patient status post contralateral mastectomy for personal history ofbreast cancer. Impression: Annual screening mammography is recommended. OVERALL FINAL ASSESSMENT: BI-RADS CATEGORY 1: Negative. Graciela Yoon MD IMG MAMMO PROCEDURES Fi nal Result from Last 3 Months or Most Recently Relevant to Health Maintenance Insurance [facility] Member Subscriber Plan / Payer (Ef fective 2019-Present) Name:Nica Beaver Relation to Subscriber:Self Name:Nica Beaver Payer ID:[id number] (NAIC) Group ID:[id number] Type:[employer] Address: [facility] [id number] [address] [facility] Advance Directives For more information, please contact: [phone] * Full Code (Latest Code Status on File) Date Activated Date Inactivated Comments 07/04/2019 10:29 AM 07/04/2019 7:06 PM * Full Code Date Activated Date Inactivated Comments 08/16/2018 4:13 PM 08/17/2018 1:39 PM Care Teams Deck Mechanic Relationship Specialty [place] [address] [place] [address] [id number] PCP - General Family Medicine 03/19/20 Graciela Yoon MD [address] [place] [address] Surgeon Surgical Oncology 04/28/19 Moustapha Abraham DO [address] [id number] Medical Oncologist/Resident Advisor Hematology and Oncology 06/28/19
--- OUTSIDE RECORDS SUMMARY | 2025-02-13 08:04 | XMS_ITS ---
Author Organization [facility] Address [address] [place] [id number] Care Team Providers Care Music Adapter Name Role Phone Graciela Yoon MD Unavailable [phone] Moustapha Abraham DO Unavailable [phone] Arminda Alford MD Primary Care Provider [phone] Active Problems Problem Noted Date Diagnosed Date Paroxysmal supraventricular tachycardia 12/22/19 24 Status post bilateral mastectomy 07/15/2019 Anemia 12/16/2018 Malignant neoplasm of overla pping sites of left breast in female, estrogen receptor positive 07/12/2018 Cancer Staging:Pathologic stage from 09/20/2018:Stage IIA(pT2, pN2a, cM0, G3, ER: Positive, IL: Positive, HER2: Positive) - Signed by Debby Tony MD on 09/20/2018 Breast mass 06/29/2018 Current Treatment and Therapy Plans No current plan information found. Past Treatment and Therapy Plans Blood Products Plan Name Start Date Discontinue Date Treatment Medications Discontinue Reason Plan Provider ADULT BLOOD ADMINISTRATION FOR OUTPATIENT 12/16/2018 04/24/2022 No medications scheduled. Therapy Complete Debby Tony MD Line Care Plan Name Start Date Discontinue Date Treatment Medications Discontinue Reason Plan Provider IV MAINTENANCE THERAPY PLAN 09/01/2019 04/24/2022 No medications scheduled. Therapy Complete Moustapha Abraham DO Oncology Chemotherapy Treatment Plan Name Start Date Discontinue Date Treatment Medications Discontinue Reason Plan Provider Cycles TCHP: (DOCEtaxel / CARBOplatin / Trastuzumab / Pertuzumab) 21 Day Cycles - Breast 09/23/19 19 12/12/2020 CARBOplatin (PARAPLATIN)CARBO platin (PARAPLATIN) IVPB in 250 mLDOCEtaxel (TAXOTERE)DOCEtax el (TAXOTERE) IVPB in 250 mL (vial 10mg/mL)pertuzuma b (PERJETA)pertuzum ab (PERJETA) IVPBtrastuzumab (HERCEPTIN)trastu zumab (HERCEPTIN) IVPB Therapy Complete Moustapha Abraham DO 18 of 18 cycles completed Oncology Supportive Care Therapy Plan Plan Name Start Date Discontinue Date Treatment Medications Discontinue Reason Plan Provider IV MAINTENANCE THERAPY PLAN & HYDRATION THERAPY PLAN 09/23/2018 04/24/2022 No medications scheduled. Therapy Complete Debby Tony MD Lifetime Dose Tracking * Chemical Lifetime Dose Automatic Entry Manual Entr y Fluoro Time 1 minutes 1 minutes 0 minutes Air kerma at the reference point (Ka,r) 0.16 mGy 0 .16 mGy 0 mGy DLP 1,289 mGycm 1,289 mGycm 0 mGycm Treatment Summaries Malignant neoplasm of overlapping sites of left breast in female, estrogen receptor positive (HCC)* Images from the original note were not included. [address], [address] [place] [address] This Survivorship Care Plan is a cancer treatment summary and follow-up plan and is provided to youto keep with your health care records and to share with your primary care provider or any of your doctors and nurses. This summary is a brief record of major aspects of your cancer treatment not a detailed or comprehensive record of your care. You should review this with your cancer provider. Treatment Summary and Survivorship Care Plan for Breast Cancer General Information Patient name Nica Beaver (home) [phone] (work) Date of 1965 Health Care Providers (Including Names, Institutions) Provider Name: Contact Information: Primary Care Physician Arminda Alford MD [phone] Surgeon Graciela Yoon MD [phone] Plastic surgeon Claribel Higuera MD [phone] Medical Oncologist Moustapha Abraham DO [phone] Previous Medical Oncologist Debby Tony MD Treatment Summary Cancer Diagnosis Information Diagnosis Malignant neoplasm of overlapping sites of left breast in female, estrogen receptor positive (CMS/HCC) (HCC) Diagnosis date 07/06/2018 Staging information Cancer Staging Malignant neoplasm of overlapping sites of left breast in female, estrogen receptor positive (CMS/HCC) (HCC) Staging form: Breast, AJCC 8th Edition - Pathologic stage from 09/20/2018: Stage IIA (pT2, pN2a, cM0, G3, ER: Positive, IL: Positive, HER2:Positive) - Signed by Debby Tony MD on 09/20/2018 Estrogen: Positive Progesterone: Positive HER2: Positive Treatment Completed Surgery Surgery date 07/06/2018 Surgical procedure Left Breast & Axilla Biopsy Surgery date 08/16/2018 Surgical procedure Left Mastectomy and sentinel biopsy Surgery date 09/13/2018 Surgical procedure Left axilla excision & Port Placement Surgery date 07/14/2019 Surgical procedure Right Mastectomy Radiation No Systemic Therapy (chemotherapy, hormonal therapy, other) TCHP: (DOCEtaxel / CARBOplatin / Trastuzumab / Pertuzumab) 21 Day Cycles - Breast Treatment goal Curative Status Inactive Start Date 09/23/2018 End Date 09/22/2019 Provider Moustapha Abraham DO Chemotherapy pegfilgrastim (NEULASTA ON-BODY) injection 6 mg, 6 mg, subcutaneous, Once, 6 of 6 cycles Administration: 6 mg (09/23/2018), 6 mg (10/14/2018), 6 mg (11/04/2018), 6 mg (11/25/2018), 6 mg (12/24/2018), 6 mg (01/14/2019) pertuzumab (PERJETA) 840 mg in sodium chloride 0.9% 250 mL IVPB, 840 mg, intravenous, Once, 6 of 6 cycles Administration: 840 mg (09/23/2018), 420 mg (10/14/2018), 420 mg (11/04/2018), 420 mg (11/25/2018), 420 mg (12/24/2018), 420 mg (01/14/2019) trastuzumab (HERCEPTIN) 765.66 mg in sodium chloride 0.9% 250 mL IVPB, 8 mg/kg = 765.66 mg, intravenous, Once, 18 of 18 cycles Administration: 765.66 mg (09/23/2018), 574.14 mg (10/14/2018), 575 mg (02/04/2019), 574.14 mg (11/04/2018), 574.14 mg (11/25/2018), 574.14 mg (12/24/2018), 574.14 mg (01/14/2019), 575 mg (02/25/2019), 575 mg (03/18/2019), 575 mg (04/08/2019), 575 mg (04/28/2019), 575 mg (05/19/2019), 575 mg (06/09/2019), 575 mg (06/30/2019), 575 mg (07/21/2019), 575 mg (08/11/2019), 575 mg (09/01/2019), 575 mg (09/22/2019) CARBOplatin (PARAPLATIN) 900 mg in sodium chloride 0.9% 250 mL IVPB (By AUC), 900 mg, intravenous, Once, 6 of 6 cycles Administration: 900 mg (09/23/2018), 900 mg (10/14/2018), 900 mg (11/04/2018), 900 mg (11/25/2018), 900 mg (12/24/2018), 900 mg (01/14/2019) DOCEtaxel (TAXOTERE) 160 mg in sodium chloride 0.9% (PVC-FREE) 250 mL IVPB, 75 mg/m2 = 160 mg, intravenous, Once, 6 of 6 cycles Administration: 160 mg (09/23/2018), 160 mg (10/14/2018), 160 mg (11/04/2018), 160 mg (11/25/2018), 160 mg (12/24/2018), 160 mg (01/14/2019) Lifetime Dose Tracking Lifetime Dose Tracking No doses have been documented on this patient for the following tracked chemicals: doxorubicin, epirubicin, idarubicin, daunorubicin, mitoxantrone, bleomycin, mitomycin, cyclophosphamide, carmustine,cisplatin, ifosfamide, carboplatin, fluorouracil, etoposide, doxorubicin HCl pegylated liposomal, et oposide phosphate, valrubicin, doxorubicin isotoxic equivalent Research Studies Persistent symptoms or side effects that have continued after finishing treatment: fatigue, numbness, pain, cardiac dysfunction Family History Cancer Cancer-related family history includes Ovarian cancer (age of onset: 32) in her mother. Genetic Testing No Tell your provider if there is a history of cancer in your family, if another member of your familywas diagnosed with cancer since your last visit. The following risk factors may indicate that breast cancer could run in the family: Adventist heritage History of ovarian cancer in the patient or any 1st or 2nd degree relative Any 1st degree relative with breast cancer before the age of 50 Two or more 1st or 2nd degree relative diagnosed with breast cancer at any age Patient or relative diagnosed with bilateral breast cancer History of breast cancer in a male relative Treatment Ongoing Additional Treatment Start Date Planned Duration Possible Side Effects Tamoxifen 01/2019-05/2019 5 year (if on AI & Tamoxifen then total of 5 years combined Hot flashesand vaginal discharge (common); endometrial cancer, serious blood clots and eye problems (all very rare). Other rare side effects may occur. Aromatase Inhibitors (anastrozole, exemestane and letrozole) 07/2019 5 year (if on AI & Tamoxifen then total of 5 years combined Hot flashes, joint/muscle aches, vaginal dryness and bone loss (common); hair thinning (rare) Other rare side effects may occur. Herceptin 09/23/2018 1 year Rarely shortness of breath, new swelling in legs (if these occur please notify your medical oncologist). Calcium + Vitamin D 19-50 years age and males age 51-70 years: recommend 1,000 mg/day calcium & 600 IU/day vitamin D Females age 51-70 1200 mg/day calcium and 600 IU/day vitamin D Over 70 years age take 1200 mg/day calcium and 800 IU/day of vitamin D 2000 international units daily Lifelong An irregular heartbeat; nausea, constipation; weakness, drowsiness, headache; dry mouth,or a metallic taste in your mouth; or muscle or bone pain. Follow-up Care Plan Your follow-up care plan is design to inform you and primary care providers regarding the recommended and required follow-up, cancer screening and routine health maintenance that is needed to maintain optimal health. Coordinating Provider When/How often Moustapha Abraham, DO Every 3-6 months for year 1 to 3 Moustapha Abraham DO Every 6-12 months for year 4 to 5 Graciela Yoon MD Yearly Arminda Alford After 5 years, annual follow up Cancer Surveillance or other Recommended Tests Coordinating Provider Test How Often Moustapha Abraham DO - Year 1-5, Arminda Alford MD - After year 5 Mammogram for remaining breast(s) Yearly Moustapha Abraham DO Cardiac monitoring Every 3 months while on Herceptin WOVEN BLIND LOOM TENDER: No care valve steamer to display Pap/pelvic exam (woman only) As indicated by provider Medical Oncologist: Moustapha Abraham DO, PCP: Arminda Alford Bone Density Every 2 years if on an aromatase inhibitor or as indicated by your provider CT/PET and tumor markers. Not recommended in the absence of signs or symptoms of cancer recurrence Possible late- and long-term effects that someone with this type of cancer and treatment may experience: Lymphedema The risk for developing lymphedema varies across treatments, time and the patient. This may occur right after surgery or months to years after treatment. It affects 12 to 25% of patients. The risk increases with the removal of lymph nodes, radiation therapy and injury. Avoid blood pressure or blooddraw in affected arm if lymph nodes were removed. If you experience skin tightness, swelling, warmth or redness in your affected side, tell your provider right away. Physical therapy can improve lymph drainage. Talk with your provider about approved exercise. Avoid extreme temperature, injury or infection on the affected side. Talk to your provider about a compression stocking, especially when flying. Peripheral Neuropathy This may feel like numbness, tingling or painful sensations that develop in your hands and feet. Neuropathy can occur during or shortly after treatment. Sometimes it goes away. For some patients the symptoms can be chronic. Talk to your provider about your symptoms. Some medications may lessen the symptoms. Other approaches include acupuncture, physical therapy and exercise. Fatigue Many patients experience some level of fatigue. Some patients experience severe and ongoing fatigue. An active lifestyle with healthy sleep patterns can improve your energy levels. Talk to your provider about ongoing (more than 3 months) fatigue. Osteoporosis Patients on hormone therapies and who experience early menopause are at a higher risk of developingfractures, osteopenia (lower than normal bone density) and osteoporosis (loss of bone density). Weight bearing exercise, adequate intake calcium and vitamin D are helpful. Bone density scans are usedto evaluate bone health. Movement or strength changes Some patients experience loss of strength or difficulty with mobility or range of motion after surgery or their cancer treatments. Talk with your provider if you can no longer move the way you did before your cancer treatment or if you feel weak or unsteady or you have fallen. Physical therapy or rehabilitation may be helpful. Weight management and Nutrition Some patients find it difficult to maintain good nutrition during or after treatment. This can leadto weight loss or weight gain. Aim for a normal body mass index (BMI) of 18.5-24.9, talk to your provider about your BMI. Being overweight may increase your risk of cancer recurrence and other diseases. Eat a healthy diet, focus on lean meats and proteins, more fruits, vegetables and whole grains and low in sugars and fats. Limit red meat and avoid processed meat. Work to maintain healthy weight behaviors that include diet and physical activity. Menopause or Sexual changes or symptoms of estrogen deprivation (hot flashes, sweats, vaginal discharge or dryness, painful intercourse). The desire to engage in sexual activity may lessen due to low energy, decreased sexual function and/or changes in appearance. Symptoms of menopause may cause vaginal changes and/or dryness. Your riskdepends on your age and the kind of treatment you received. Cancer diagnosis and treatment may cause existing sexual problems to be worse. Evaluation of sexual function and professional counseling may be helpful. The use of rnub-znd-[id number] lubricants may lessen painful intercourse. Talk with your provider about sexual changes and symptoms of menopause. Promising non-hormone treatments that may include antidepressants (drugs that treat depression), dietary changes, acupuncture and exercise may h elp lessen symptoms. Psychosocial Distress (Emotional stress, worry or depression). Many patients experience distress, anxiety or depression at some point. This can include worry, difficulty sleeping or sadness and often lessens over time. Discuss this with your provider; a referralto a therapist may be helpful. Physical activity has been shown to relieve stress. Some patients may benefit from the use of medication. It is important to remember that these symptoms can be due to other causes like diabetes or with normal aging. If these or any other new symptoms occur bring these to attention of your health care provider. These symptoms should be brought to the attention of your provider: Anything that represents a brand new symptom; Anything that represents a persistent symptom; Anything you are worried about that might be related to the cancer coming back. Please continue to see your primary care provider for all general health care recommended for a patient your age such as routine immunizations, and routine non-breast cancer screening like colonoscopy or bone density exams. Consult with your health care provider about prevention and screening for bone loss using bone density tests. Cancer survivors may experience issues with the areas listed below. If you have any concerns in these or other areas, please speak with your doctors or nurses to find out how you can get help with them. Anxiety and depression Emotional and mental health Fatigue Fertility Financial advice or assistance Insurance Memory or concentration loss Parenting Physical functioning School/work Sexual functioning Stopping smoking Weight changes Other A number of lifestyle/behaviors can affect your ongoing health, including the risk for the cancer coming back or developing another cancer. Discuss these recommendations with your doctor or nurse: Eat a healthy diet: focus on lean meats and proteins, more fruits, vegetables and whole grains and low in sugars and fats. Limit red meat and avoid processed meat. Maintain a healthy weight; avoid being overweight. Aim for a normal body mass index (BMI) of 18.5-24.9. Help learning to eat healthier, call the software security consultant at: [facility] Alana Have an active lifestyle, strive for 30 minutes of moderate exercise 5 times a week and strength orresistance training at least twice a week. Use broad-spectrum (UVA+UVB) sunscreen with SPF 30 or greater, is water resistant, limit time spentin the sun (10 am-4 pm), wear hat, wear UV protective clothing, wear sunglasses. Never use a tanning bed. Skin that was irradiated may be more sensitive over your lifetime. Do not smoke or chew tobacco; participate in a smoking cessation program. Limit alcohol intake, 1 drink per day for a woman and 2 drinks per day for a man. Resources you may be interested in: [facility] A National [facility] [place] [facility] http://www.[facility]/ [facility] 1st floor of [facility] [phone]. Computer access, educational material, counseling services (FREE) Cancer Resources: www.cancer.net [place] Disabilities Act: The U.S. Department of Justice provides information about the Americans with Disabilities Act (ADA). Toll free number http://www.ada.gov/ Occupational Therapy at [facility]. Improve memory and thinking following chemotherapy. Improve your performance at home, work and in the community. or Toll free www.ot.[facility]/patients Managing your weight after a cancer diagnosis: http://www.cancer.net/sites/cancer.net/files/weight_after_cancer_diagnosis.pdf National Coalition for Cancer Survivorship: http://www.canceradvocacy.org/ [place] Cancer Society Cancer Survivors Network: http://csn.cancer.org/ [employer]: https://survivorship.cancer.gov/ an online tool for cancer survivors andcaregivers created by the [place] Cancer Society and the National Cancer [place]. It provides: Information on dealing with side effects from cancer and treatment Caregivers with support and resources Practical advice about talking to friends and family about cancer Questions to ask their health care team Help understanding their rights in the workplace
== END 2025-02-13 08:02 | disposition home or self-care (01) ==
PROVIDERS: PCP Family Medicine; Visit Provider Internal Medicine Medical Oncology
DX: C50.812 Malignant neoplasm of overlapping sites of left female breast (principal); Z17.0 Estrogen receptor positive status [ER+]; Z13.820 Encounter for screening for osteoporosis; Z79.811 Long term (current) use of aromatase inhibitors; M85.88 Other specified disorders of bone density and structure, other site
CPT/HCPCS: 77080